=== PATIENT | male | born 1995 | race Two or more races ===

== ENCOUNTER 2017-12-28 22:26 | Emergency (ER) | payer SELFPAY ==
[~2017-12-28] VITALS: Ht 177.8 cm; Wt 80.0 kg
[2017-12-28 22:36] VITALS: BP 135/86
== END 2017-12-28 23:00 | disposition left against medical advice (07) ==
LOC: ED 22:42
DX: F10.129 Alcohol abuse with intoxication, unspecified (principal)
CPT/HCPCS: 99283